=== PATIENT | male | born 1935 | race Caucasian/White ===

== ENCOUNTER 2018-10-20 20:41 | Inpatient (IN) | payer MEDICARE, OTHER ==
[~2018-10-20] VITALS: Ht 195.6 cm; Wt 103.9 kg
[2018-10-20] MEDS ORDERED: IV NORMAL SALINE 500ML 500 ML IV ONE (21:00)
[2018-10-20 21:01] LABS: BASO # 0.1 x10^3/uL (0.0-0.2); BASO % 1 % (0-3); EOS # 0.1 x10^3/uL (0.0-0.7); EOS % 2 % (0-3); HEMATOCRIT 42.6 % (39.0-53.0); HEMOGLOBIN 14.4 g/dL (13.0-17.5); LYMPH # 1.9 x10^3/uL (1.0-4.8); LYMPH % 29 % (24-48); MEAN CORPUSCULAR HEMOGLOBIN 33 pg (25-35); MEAN CORPUSCULAR HGB CONC 34 g/dL (31-37); MEAN CORPUSCULAR VOLUME 98 fL (79-100); MONO # 0.8 x10^3/uL (0.0-1.1); MONO % 12 % (0-9); NEUT # 3.8 x10^3uL (1.8-7.7); NEUT % 57 % (31-73); PLATELET COUNT 167 x10^3/uL (140-400); RED BLOOD COUNT 4.37 x10^6/uL (4.30-5.70); RED CELL DISTRIBUTION WIDTH 13.4 % (11.5-14.5); WHITE BLOOD COUNT 6.7 x10^3/uL (4.0-11.0)
[2018-10-20 21:19] LABS: ALBUMIN 3.8 g/dL (3.4-5.0); ALBUMIN/GLOBULIN RATIO 0.9 (1.0-1.7); CALCIUM 9.1 mg/dL (8.5-10.1); CREATININE 2.1 mg/dL (0.7-1.3); GFR 30.3; MAGNESIUM 2.2 mg/dL (1.8-2.4); POTASSIUM 4.5 mmol/L (3.5-5.1); TOTAL BILIRUBIN 0.5 mg/dL (0.2-1.0); TOTAL PROTEIN 8.1 g/dL (6.4-8.2)
--- NOTE | 2018-10-20 21:38 | PHYS DOC ---
Past History Past Medical History: No Pertinent History Past Surgical History: Other Alcohol Use: None Drug Use: None Adult General Chief Complaint Chief Complaint: SYNCOPE HPI HPI Patient is an 83-year-old male who arrives via EMS with report of having had syncopal episode at work. Patient was sitting at his desk and bystanders had indicated that he became cool, diaphoretic and then slumped over. Coworkers had helped him to the ground. Patient had no head injury. EMS reports that when they had arrived patient was cool and diaphoretic. They state that initially when they had gotten him up to get on the stretcher that he became bradycardic down to the 40s and also a little hypotensive with pressure around 90/50. Patient indicates that he has had no chest pain or shortness of breath. He states that at this time is feeling much better. Review of Systems Review of Systems Constitutional: Denies fever or chills [] Respiratory: Denies cough or shortness of breath [] Cardiovascular: No additional information not addressed in HPI [] GI: Denies abdominal pain, vomiting or diarrhea [] Integument: Denies rash or skin lesions [] Neurologic: Denies headache, focal weakness or sensory changes. Positive syncopal episode. [] All other systems were reviewed and found to be within normal limits, except as documented in this note. Current Medications Current Medications Current Medications Medications (Trade) Dose Ordered Sig/Samantha Start Time Stop Time Status Last Admin Dose Admin Sodium Chloride 500 ml @ 500 mls/hr Q1H ONCE 10/20/18 21:00 10/20/18 21:59 10/20/18 21:04 500 MLS/HR Allergies Allergies Allergies Coded Allergies Type Severity Reaction Last Updated Verified No Known Drug Allergies 10/20/18 No Physical Exam Physical Exam Constitutional: Well developed, well nourished, no acute distress, non-toxic appearance. [] HENT: Normocephalic, atraumatic, bilateral external ears normal, oropharynx moist, no oral exudates, nose normal. [] Eyes: PERRLA, EOMI, conjunctiva normal, no discharge. [] Neck: Normal range of motion, no tenderness, supple, no stridor. [] Cardiovascular: Normal rate with irregular rhythm[] Lungs & Thorax: Bilateral breath sounds clear to auscultation [] Abdomen: Bowel sounds normal, soft, no tenderness. [] Skin: Warm, dry, no erythema, no rash. [] Extremities: No tenderness, no cyanosis, no clubbing, ROM intact. [] Neurologic: Alert and oriented X 3, no focal deficits noted. [] Current Patient Data Vital Signs Vital Signs Date Time Temp Pulse Resp B/P (MAP) Pulse Ox O2 Delivery O2 Flow Rate FiO2 10/20/18 20:56 97.4 67 16 95 Room Air Lab Results Laboratory Tests Test 10/20/18 20:47 White Blood Count 6.7 x10^3/uL (4.0-11.0) Red Blood Count 4.37 x10^6/uL (4.30-5.70) Hemoglobin 14.4 g/dL (13.0-17.5) Hematocrit 42.6 % (39.0-53.0) Mean Corpuscular Volume 98 fL (79-100) Mean Corpuscular Hemoglobin 33 pg (25-35) Mean Corpuscular Hemoglobin Concent 34 g/dL (31-37) Red Cell Distribution Width 13.4 % (11.5-14.5) Platelet Count 167 x10^3/uL (140-400) Neutrophils (%) (Auto) 57 % (31-73) Lymphocytes (%) (Auto) 29 % (24-48) Monocytes (%) (Auto) 12 % (0-9) H Eosinophils (%) (Auto) 2 % (0-3) Basophils (%) (Auto) 1 % (0-3) Neutrophils # (Auto) 3.8 x10^3uL (1.8-7.7) Lymphocytes # (Auto) 1.9 x10^3/uL (1.0-4.8) Monocytes # (Auto) 0.8 x10^3/uL (0.0-1.1) Eosinophils # (Auto) 0.1 x10^3/uL (0.0-0.7) Basophils # (Auto) 0.1 x10^3/uL (0.0-0.2) Sodium Level 140 mmol/L (136-145) Potassium Level 4.5 mmol/L (3.5-5.1) Chloride Level 102 mmol/L (98-107) Carbon Dioxide Level 32 mmol/L (21-32) Anion Gap 6 (6-14) Blood Urea Nitrogen 28 mg/dL (8-26) H Creatinine 2.1 mg/dL (0.7-1.3) H Estimated GFR (Cockcroft-Gault) 30.3 BUN/Creatinine Ratio 13 (6-20) Glucose Level 114 mg/dL (70-99) H Calcium Level 9.1 mg/dL (8.5-10.1) Magnesium Level 2.2 mg/dL (1.8-2.4) Total Bilirubin 0.5 mg/dL (0.2-1.0) Aspartate Amino Transferase (AST) 41 U/L (15-37) H Alanine Aminotransferase (ALT) 32 U/L (16-63) Alkaline Phosphatase 83 U/L (46-116) Troponin I Quantitative 0.059 ng/mL (0-0.055) H Total Protein 8.1 g/dL (6.4-8.2) Albumin 3.8 g/dL (3.4-5.0) Albumin/Globulin Ratio 0.9 (1.0-1.7) L EKG EKG EKG demonstrates atrial fibrillation with controlled response with heart rate of 60.[] Radiology/Procedures Radiology/Procedures [] Course & Med Decision Making Course & Med Decision Making Pertinent Labs and Imaging studies reviewed. (See chart for details) [] Dragon Disclaimer Dragon Disclaimer This electronic medical record was generated, in whole or in part, using a voice recognition dictation system. Departure Departure: Impression: Primary Impression: Vasovagal syncope Additional Impressions: Chronic renal insufficiency Elevated troponin Disposition: ADMITTED INPATIENT Admitting Physician: Goran Cooper Condition: IMPROVED Problem Qualifiers Additional Impressions: Chronic renal insufficiency Chronic kidney disease stage: unspecified stage Qualified Codes: N18.9 - Chronic kidney disease, unspecified TONE MILIAN Jr. DO Oct 20, 2018 21:38
[2018-10-20 23:11] VITALS: BP 118/74
[2018-10-21 00:20] LABS: BACTERIA,URINE 0 /HPF (0-FEW); BILIRUBIN,URINE NEG (NEG); CLARITY,URINE CLEAR; COLOR,URINE YELLOW; GLUCOSE,URINE NEG (NEG); HYALINE CASTS, URINE FEW /HPF; NITRITE,URINE NEG (NEG); SQUAMOUS EPITHELIAL CELL,UR FEW /LPF; UROBILINOGEN,URINE 0.2 mg/dL (0.2 mg/dL)
[2018-10-21] MEDS ORDERED: DABI150C PO (00:53)
[2018-10-21] MEDS ORDERED: LEVO125T5 PO (00:53)
[2018-10-21] MEDS ORDERED: BENA5TAB2 PO (00:53)
[2018-10-21] MEDS ORDERED: EZET10TA49 PO (00:53)
[2018-10-21] MEDS ORDERED: AMLO5TAB10 PO (00:53)
[2018-10-21 04:57] VITALS: BP 105/77
[2018-10-21 06:40] LABS: BASO % 1 % (0-3); EOS # 0.1 x10^3/uL (0.0-0.7); EOS % 1 % (0-3); HEMATOCRIT 37.9 % (39.0-53.0); HEMOGLOBIN 13.2 g/dL (13.0-17.5); LYMPH # 1.9 x10^3/uL (1.0-4.8); LYMPH % 34 % (24-48); MEAN CORPUSCULAR HEMOGLOBIN 34 pg (25-35); MEAN CORPUSCULAR HGB CONC 35 g/dL (31-37); MEAN CORPUSCULAR VOLUME 97 fL (79-100); MONO # 0.6 x10^3/uL (0.0-1.1); MONO % 11 % (0-9); NEUT # 2.9 x10^3uL (1.8-7.7); NEUT % 53 % (31-73); PLATELET COUNT 154 x10^3/uL (140-400); RED BLOOD COUNT 3.93 x10^6/uL (4.30-5.70); RED CELL DISTRIBUTION WIDTH 13.3 % (11.5-14.5); WHITE BLOOD COUNT 5.5 x10^3/uL (4.0-11.0)
[2018-10-21 06:46] LABS: CALCIUM 8.8 mg/dL (8.5-10.1); CREATININE 1.3 mg/dL (0.7-1.3); GFR 52.7
[2018-10-21] MEDS ORDERED: DABIGATRAN ETEXILATE 150 MG CAPSULE. PO SCH (09:00)
[2018-10-21] MEDS ORDERED: EZETIMIBE 10 MG TABLET PO SCH (09:00)
--- NOTE | 2018-10-21 09:31 | PDOC2 ---
ALIEFRIDA Valeria DRY CANS OPERATOR 10/21/18 0931: CONSULT Date of Admission DATE: 10/21/18 TIME: 09:29 Reason for Consult: syncope Problem List Problems Medical Problems: (1) Chronic renal insufficiency Status: Acute (2) Elevated troponin Status: Acute (3) Vasovagal syncope Status: Acute History of Present Illness Mr Hernandez is an 83 year old male who resides in [place] and is here working. He presented to the ED after a syncopal event at work. He reports that he has been working nights (not his norm), fighting and upper respiratory infection and not eating or drinking well for several days. 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 He sat down and became suddenly very diaphoretic. His next memory is waking up on the floor. His event was wittnessed and apparently bystanders stated that they heard him make a snoring noise and when they looked he was sliding out of chair. they caught him and lowered him to ground and elevated his feet until he woke. He denies bite of tongue, or incontinence. On arrival to ED he was found to be dehydrated with a Cr of 2.1. He was given IVF and this am reports he feels normal. he does have a history of chronic atrial fibrillation which is rate controlled and he is on pradaxa. EMS did not bradycardia in the 40s when getting him up but he is currently rate controlled. He denies chest pain or dyspnea. He had stress test a couple years ago and reportedly normal. He normal works out 4 hours regularly and without problems. he denies congestive symptoms. He reports normal heart function and valves and Af is reportedly idiopathic. Past Medical History hypertension atrial fibrillation, chronic hypothyroid Past Surgical History bilateral knee replacement, meniscectomy, bilateral hip surg, right rotator cuff sx, laminectomy x2, bilateral lens replacement Family History unknown, adopted Social History remote history of smoking, occasional beer, no illicit drugs, very active Current Medications Current Medications Sodium Chloride 500 ml @ 500 mls/hr Q1H ONCE IV Last administered on 10/20/18at 21:04; Start 10/20/18 at 21:00; Stop 10/20/18 at 21:59; Status DC Dabigatran (Pradaxa) 150 mg BID PO Last administered on 10/21/18at 08:42; Start 10/21/18 at 09:00 EZETIMIBE (Zetia) 10 mg DAILY PO Last administered on 10/21/18at 08:42; Start 10/21/18 at 09:00 Levothyroxine Sodium (Synthroid) 125 mcg DAILY06 PO ; Start 10/22/18 at 06:00 Active Scripts Active Reported Amlodipine Besylate 5 Mg Tablet 5 Mg PO DAILY Benazepril Hcl 5 Mg Tablet 5 Mg PO DAILY Ezetimibe 10 Mg Tablet 10 Mg PO DAILY Pradaxa (Dabigatran Etexilate Mesylate) 150 Mg Capsule 150 Mg PO BID Levothyroxine Sodium 125 Mcg Tablet 125 Mcg PO DAILY06 Allergies: Coded Allergies: No Known Drug Allergies (Unverified , 10/20/18) Review of System as per HPI General: Alert, Oriented X3, Cooperative, No acute distress HEENT: Atraumatic, EOMI, Mucous membr. moist/pink Lungs: Other (occ expiratory wheeze, otherwise clear) Heart: Other (irr, no gallops, clicks or rubs) Abdomen: Normal bowel sounds, Soft, No tenderness Neuro: Normal speech, Strength at 5/5 X4 ext Psych/Mental Status: Mental status NL, Mood NL VITALS Vital Signs Date Time Temp Pulse Resp B/P (MAP) Pulse Ox O2 Delivery O2 Flow Rate FiO2 10/21/18 04:57 98.6 78 18 105/77 (86) 93 Room Air Labs Laboratory Tests Test 10/20/18 20:47 10/20/18 23:42 10/21/18 01:40 10/21/18 06:05 White Blood Count 6.7 x10^3/uL (4.0-11.0) 5.5 x10^3/uL (4.0-11.0) Red Blood Count 4.37 x10^6/uL (4.30-5.70) 3.93 x10^6/uL (4.30-5.70) Hemoglobin 14.4 g/dL (13.0-17.5) 13.2 g/dL (13.0-17.5) Hematocrit 42.6 % (39.0-53.0) 37.9 % (39.0-53.0) Mean Corpuscular Volume 98 fL (79-100) 97 fL (79-100) Mean Corpuscular Hemoglobin 33 pg (25-35) 34 pg (25-35) Mean Corpuscular Hemoglobin Concent 34 g/dL (31-37) 35 g/dL (31-37) Red Cell Distribution Width 13.4 % (11.5-14.5) 13.3 % (11.5-14.5) Platelet Count 167 x10^3/uL (140-400) 154 x10^3/uL (140-400) Neutrophils (%) (Auto) 57 % (31-73) 53 % (31-73) Lymphocytes (%) (Auto) 29 % (24-48) 34 % (24-48) Monocytes (%) (Auto) 12 % (0-9) 11 % (0-9) Eosinophils (%) (Auto) 2 % (0-3) 1 % (0-3) Basophils (%) (Auto) 1 % (0-3) 1 % (0-3) Neutrophils # (Auto) 3.8 x10^3uL (1.8-7.7) 2.9 x10^3uL (1.8-7.7) Lymphocytes # (Auto) 1.9 x10^3/uL (1.0-4.8) 1.9 x10^3/uL (1.0-4.8) Monocytes # (Auto) 0.8 x10^3/uL (0.0-1.1) 0.6 x10^3/uL (0.0-1.1) Eosinophils # (Auto) 0.1 x10^3/uL (0.0-0.7) 0.1 x10^3/uL (0.0-0.7) Basophils # (Auto) 0.1 x10^3/uL (0.0-0.2) 0.0 x10^3/uL (0.0-0.2) Sodium Level 140 mmol/L (136-145) 138 mmol/L (136-145) Potassium Level 4.5 mmol/L (3.5-5.1) 4.0 mmol/L (3.5-5.1) Chloride Level 102 mmol/L (98-107) 103 mmol/L (98-107) Carbon Dioxide Level 32 mmol/L (21-32) 28 mmol/L (21-32) Anion Gap 6 (6-14) 7 (6-14) Blood Urea Nitrogen 28 mg/dL (8-26) 26 mg/dL (8-26) Creatinine 2.1 mg/dL (0.7-1.3) 1.3 mg/dL (0.7-1.3) Estimated GFR (Cockcroft-Gault) 30.3 52.7 BUN/Creatinine Ratio 13 (6-20) Glucose Level 114 mg/dL (70-99) 88 mg/dL (70-99) Calcium Level 9.1 mg/dL (8.5-10.1) 8.8 mg/dL (8.5-10.1) Magnesium Level 2.2 mg/dL (1.8-2.4) Total Bilirubin 0.5 mg/dL (0.2-1.0) Aspartate Amino Transf (AST/SGOT) 41 U/L (15-37) Alanine Aminotransferase (ALT/SGPT) 32 U/L (16-63) Alkaline Phosphatase 83 U/L (46-116) Troponin I Quantitative 0.059 ng/mL (0-0.055) < 0.017 ng/mL (0-0.055) < 0.017 ng/mL (0-0.055) Total Protein 8.1 g/dL (6.4-8.2) Albumin 3.8 g/dL (3.4-5.0) Albumin/Globulin Ratio 0.9 (1.0-1.7) Urine Collection Type Void Urine Color Yellow Urine Clarity Clear Urine pH 5.5 Urine Specific [place] 1.025 Urine Protein 30 mg/dl (NEG-TRACE) Urine Glucose (UA) Neg mg/dL (NEG) Urine Ketones (Stick) Trace mg/dL (NEG) Urine Blood Neg (NEG) Urine Nitrite Neg (NEG) Urine Bilirubin Neg (NEG) Urine Urobilinogen Dipstick 0.2 mg/dL (0.2 mg/dL) Urine Leukocyte Esterase Neg (NEG) Urine RBC 1-2 /HPF (0-2) Urine WBC 1-4 /HPF (0-4) Urine Squamous Epithelial Cells Few /LPF Urine Bacteria 0 /HPF (0-FEW) Urine Hyaline Casts Few /HPF Urine Mucus Slight /LPF Assessment/Plan 1. syncope - likely secondary to acute renal failure with dehydration 2. atrial fibrillation - chronic and rate controlled. Mild bradycardia now resolved. 3. mild trop elevation - secondary to #1, now normal. no anginal symptoms 4. ARF resolved with IVF - consistent with dehydration 5. hypertension 6. hyperlipidemia 7. URI- per PCP Check lipids and resume home medications. check echo and recommend outpatient MCT to eval frequency of bradycardia. ERON HINTON MD 10/21/182030: CONSULT Assessment/Plan Patient seen and examined. Agree with WIRE REPAIRER's assessment and plan. Syncope likely secondary to hypovolemia 2D echo showed EF 50% Perm atrial fib rate controlled Plan event monitor with primary wheat shipper as outpatient Thank you for your consultation FRIDA STRANGE APRN Oct 21, 2018 09:31 ERON HINTON MD Oct 21, 2018 20:31
[2018-10-21 11:58] VITALS: BP 127/67
--- NOTE | 2018-10-21 14:08 | CARD ---
MR#: [id number] Date of Study: 10/21/2018 Ordering Physician: FRIDA STRANGE, Referring Physician: MEMO MAIER Tech: Jaelyn Aj [facility] APPROVED REPORT EXAM: Two-dimensional and M-mode echocardiogram with Doppler and color Doppler. Other Information Quality : AverageHR: 65bpm Rhythm : Atrial FibrillationTechnically limited study due to body habitus. INDICATION Syncope 2D DIMENSIONS RVDd3.5 (2.9-3.5cm)Left Atrium(2D)3.7 (1.6-4.0cm) IVSd1.0 (0.7-1.1cm)Aortic Root(2D)3.7 (2.0-3.7cm) LVDd4.9 (3.9-5.9cm)PWd1.1 (0.7-1.1cm) LVDs3.8 (2.5-4.0cm)FS (%) 22.6 % SV51.0 mlLVEF(%)45.4 (>50%) Aortic Valve AoV Peak Jef.139.8cm/sAoV VTI24.7cm AO Peak GR.7.8mmHgLVOT Peak Jef.94.1cm/s LVOT VTI 20.36cmAO Mean GR.4mmHg JUAN JOSE (VTI)2.60cm2 Mitral Valve MV E Kazyhimw97.9cm/sMV DECEL IVSV885sg MV A Opvapijf58.6cm/sE/A Ratio3.6 Pulmonary Valve PV Peak Hcaahujj943.5cm/sPV Peak Grad.4mmHg Tricuspid Valve TR P. Wmtrowpj243qd/sRAP VCUCJIPE1plDm TR Peak Gr.38tlAeRSEX71huUl LEFT VENTRICLE The left ventricle is normal size. There is normal left ventricular wall thickness. Left ventricle sy stolic function is low normal. The Ejection Fraction is 50%. Septal motion consistent with conduction abnormality. Mild global hypokinesis. Tissue Doppler imaging reveals moderate left ventricular diast olic dysfunction. RIGHT VENTRICLE The right ventricle is borderline dilated. There is normal right ventricular wall thickness. The righ t ventricular systolic function is normal. ATRIA The left atrium size is normal. The right atrium is mildly dilated. The interatrial septum is intact with no evidence for an atrial septal defect or patent foramen ovale as noted on 2-D or Doppler imagi ng. AORTIC VALVE Not well visualized. Doppler and Color Flow revealed trace aortic regurgitation. There is no signific ant aortic valvular stenosis. There is no aortic valvular vegetation. MITRAL VALVE The mitral valve is normal in structure and function. There is no evidence of mitral valve prolapse. There is no mitral valve stenosis. Doppler and Color-flow revealed trace mitral regurgitation. TRICUSPID VALVE The tricuspid valve is normal in structure and function. Doppler and Color Flow revealed mild tricusp id regurgitation. The PA pressure was estimated at 33 mmHg. There is no tricuspid valve prolapse or v egetation. There is no tricuspid valve stenosis. PULMONIC VALVE The pulmonic valve is not well visualized. GREAT VESSELS The aortic root is normal in size. The ascending aorta is normal in size. The IVC is normal in size a nd collapses >50% with inspiration. PERICARDIAL EFFUSION There is no evidence of significant pericardial effusion. Critical Notification Critical Value: No <Conclusion> Left ventricle systolic function is low normal. The Ejection Fraction is 50%. Septal motion consistent with conduction abnormality. Mild global hypokinesis. The right ventricle is borderline dilated. Doppler and Color Flow revealed mild tricuspid regurgitation. The PA pressure was estimated at 33 mmH g. Signed by : Tomas Kumar, Electronically Approved : 10/21/2018 14:08:34
[2018-10-21 14:42] LABS: THYROID STIM HORMONE (TSH) 6.017 uIU/mL (0.358-3.740)
[2018-10-21] MEDS ORDERED: IV NORMAL SALINE 1,000ML 1,000 ML IV ONE (15:15)
[2018-10-21 15:36] VITALS: BP 114/76
[2018-10-21 15:37] VITALS: BP 121/82
[2018-10-21 15:38] VITALS: BP 146/77
--- NOTE | 2018-10-21 17:43 | HP ---
ADMIT DATE: 10/20/2018 HISTORY OF PRESENT ILLNESS: The patient is an 83-year-old male patient, who came to the Emergency Room by emergency medical service with reports of having had syncopal episode at work. He was sitting at his desk and bystanders are indicated that he became cool, diaphoretic, and then slumped over. Coworkers had helped him to the ground. The patient had no head injury. The emergency medical service personnel reported that when they arrived the patient was cool and diaphoretic. They stated that initially they got him up to get on the stretcher that he became bradycardic down to 40 degree, also little hypotensive with pressure 90/50. The patient indicated that he has no chest pain or shortness of breath. He was evaluated in the Emergency Room and was found to have elevated troponin and hfmub-vj-phxnvfy versus chronic renal failure. He has received around 1500 mL of normal saline. His first set of cardiac enzyme showed that his troponin was elevated at 0.059 and was admitted to do 2 more sets of cardiac enzyme and to consult the cardiology team. PAST MEDICAL HISTORY: Significant for hypertension, chronic atrial fibrillation, hypothyroidism. PAST SURGICAL HISTORY: Significant for bilateral total knee replacements, meniscectomy, bilateral hip surgery, right rotator cuff surgery, laminectomy x 2, bilateral lens replacement. FAMILY HISTORY: Unknown. He is adopted. SOCIAL HISTORY: He is , lives with his . He has remote history of smoking, occasional beer. No illicit drugs. Very active. ALLERGIES: He has no known drug allergies. MEDICATIONS: He is currently on following medications: He is on Pradaxa 150 mg twice a day, Zetia 10 mg once a day, amlodipine 5 mg once a day, benazepril 5 mg daily and levothyroxine sodium 125 mcg once a day. REVIEW OF SYSTEMS: As per history of present illness. PHYSICAL EXAMINATION: GENERAL: On arrival to the Emergency Room, the patient looked well and was clearly in no apparent respiratory distress, slightly pale, no jaundice, cyanosis, or thyromegaly. No jugular venous distension. No lower limb edema. VITAL SIGNS: His heart rate was 67, blood pressure 113/45, temperature was 97.4, respiratory rate was 16, and oxygen saturation was 95%. HEAD, EYES, EARS, NOSE, AND THROAT: Showed normocephalic, atraumatic. NECK: Supple. HEART: Showed normal first and second heart sounds. No gallop, rub or murmur. CHEST: Clear to auscultation. No crepitation or rhonchi. ABDOMEN: Distended, soft, nontender. NEUROLOGIC: He was awake, alert, responding appropriately. All cranial nerves intact. EXTREMITIES: He moves extremities without difficulty. LABORATORY DATA: On arrival showed a white cell count of 6700, hemoglobin 14.4, hematocrit 42.6, MCV 98 and platelet count of 167,000 with normal manual differential. His chemistry showed serum sodium of 140, potassium 4.5, chloride 102, bicarbonate 32, anion gap of 6, BUN 28, creatinine 2.1, estimated GFR was 30 mL per minute. His glucose was 114. Calcium was 9.1, magnesium 2.2. Total bilirubin, AST, ALT, alkaline phosphatase were normal. Total protein was 8.1, albumin was 3.8. Urinalysis was essentially unremarkable. His EKG showed that he was in atrial fibrillation with controlled heart rate response with a heart rate of 60 beats per minute. ASSESSMENT AND PLAN: He was admitted with syncopal episode and also acute on chronic versus chronic kidney injury, hypertension, hyperlipidemia, hypothyroidism. We will do 2 more sets of cardiac enzyme, consult the global climate change analyst. Check also his fasting lipid profile and decide on further management accordingly. MEMO MAIER MD DR: DAY/hernandez JOB#: [id number] / [id number]
--- NOTE | 2018-10-21 17:58 | DS ---
DATE OF DISCHARGE: 10/21/2018 HISTORY OF PRESENT ILLNESS: The patient was admitted yesterday with syncopal episode, thought to be probably vasovagal versus dehydration. His lab work showed that his creatinine was 2.1 and BUN was 28. According to him, he has not eaten or drank anything for the last 3 or 4 days since last Wednesday and initial troponin was also slightly elevated, so he was admitted and had 2 more sets of cardiac enzymes that showed the troponin was less than 0.017, has received a total of about 1.5 liter of normal saline. His lab work has improved dramatically. His BUN is down to 26, creatinine 1.3. As I checked his orthostatics and as he continued to have postural hypertension with symptomatic, he was given another liter of fluid. He was given clear instruction that he needs obviously to eat and drink and should not take his medication if he is not eating or drinking and was discharged home to follow with his primary care physician. PHYSICAL EXAMINATION: GENERAL: I saw him this afternoon he looked well and was clearly in no apparent respiratory distress, slightly pale, but no jaundice, cyanosis or thyromegaly. No jugular venous distention. No limb edema. VITAL SIGNS: His heart rate was 60, blood pressure was 118/74, temperature was 97.5, respiratory rate was 20, and oxygen saturation was 94%. HEAD, EYES, EARS, NOSE AND THROAT: Normocephalic, atraumatic. NECK: Supple. HEART: Showed normal first and second heart sounds. No gallop, rub or murmur. CHEST: Clear to auscultation. No crepitation or rhonchi. ABDOMEN: Distended, soft, nontender. No guarding or rigidity. No organomegaly. All hernial orifice intact. Bowel sounds normal. NEUROLOGIC: He was awake, alert, responding appropriately. All cranial nerves intact. He moves extremities without difficulty. LABORATORY DATA: His lab work this morning showed a serum sodium 138, potassium 4, chloride 103, bicarbonate 28, anion gap of 7, BUN 26, creatinine was 1.3, estimated GFR was 52 mL per minute. His glucose was 88, calcium was 8.8. Serum triglycerides were 91, total cholesterol 140, LDL was 84, VLDL was 18, and HDL cholesterol was 38, the ratio was 3. TSH was 6.017. DISCHARGE MEDICATIONS: The patient was discharged home to continue amlodipine 5 mg once a day, benazepril 5 mg once a day, Pradaxa 150 mg twice a day, Zetia 10 mg once a day and levothyroxine sodium 125 mcg once a day. FINAL DIAGNOSES: 1. Syncope due to hydration. 2. Acute on chronic kidney injury. 3. Hypertension. 4. Hyperlipidemia. 5. Atrial fibrillation, rate controlled, well anticoagulated and hypothyroidism. HOSPITAL COURSE: The patient was advised to follow with his primary care physician to make sure that he eats and drinks. As he was extremely dehydrated that was the cause of his black out. He should also follow with his primary care physician to adjust his Synthroid and he might need to have it increased. MEMO MAIER MD DR: DAY/hernandez JOB#: [id number] / [id number]
[2018-10-22] MEDS ORDERED: LEVOTHYROXINE 125 MCG TABLET PO SCH (06:00)
--- NOTE | 2018-10-22 18:21 | EKG ---
[address] [address] Test Date: 2018-10-20 Test Time: 20:51:16 Pat Name: BERTA VALERIO Department: Room: 123 A Gender: M Brainer: : [id number] Requested By: TONE MILIAN Order Number: [id number] Reading MD: Tomas Kumar MD Measurements Intervals [place] Rate: 60 P: [place]: QRS: 3 QRSD: 96 T: -3 QT: 468 QTc: 468 Interpretive Statements ATRIAL FIBRILLATION WITH CONTROLLED VENTRICULAR RESPONSE NON-SPECIFIC ST/T CHANGES Electronically Signed On 10-24-2018 15:54:14 CDT by Tomas Kumar MD
== END 2018-10-21 17:25 | disposition home or self-care (01) | DRG 640 ==
LOC: ER 20:41 → 1 SOUTH 22:13 → ER 22:55
PROVIDERS: ADMIT Internal Medicine; ATTEND Internal Medicine
DX: E86.0 Dehydration (principal); N17.0 Acute kidney failure with tubular necrosis; I48.2 Chronic atrial fibrillation; E03.9 Hypothyroidism, unspecified; I12.9 Hypertensive chronic kidney disease with stage 1 through stage 4 chronic kidney disease, or unspecified chronic kidney disease; Z96.653 Presence of artificial knee joint, bilateral; Z79.02 Long term (current) use of antithrombotics/antiplatelets; Z87.891 Personal history of nicotine dependence; E78.5 Hyperlipidemia, unspecified; E86.1 Hypovolemia; J06.9 Acute upper respiratory infection, unspecified; N18.1 Chronic kidney disease, stage 1
CPT/HCPCS: 36415; 80048; 80053; 80061; 81001; 83735; 84443; 84484; 85025; 93005; 93306; J7040; 99285-25; J7030